=== PATIENT | female | born 1990 | race African-American/Black ===

== ENCOUNTER 2021-06-12 16:45 | Emergency (ER) | payer MEDICAID, OTHER ==
[~2021-06-12] VITALS: Ht 177.8 cm; Wt 100.0 kg
[2021-06-12 17:06] VITALS: BP 118/67
== END 2021-06-12 17:46 | disposition home or self-care (01) ==
LOC: ER 16:45
DX: N93.9 Abnormal uterine and vaginal bleeding, unspecified (principal)
CPT/HCPCS: 99281

== ENCOUNTER 2021-07-15 12:15 | Inpatient (IN) | payer MEDICAID ==
[~2021-07-15] VITALS: Ht 177.8 cm; Wt 98.9 kg
[2021-07-15] MEDS ORDERED: SODIUM CHLORIDE 0.9% 1,000 ML IV ONE (12:45)
[2021-07-15 13:28] LABS: BASOPHILS % 0.5 % (0.0-2.0); EOSINOPHILS % 2.4 % (0.0-5.0); HEMATOCRIT. 37.5 % (36.0-48.0); HEMOGLOBIN. 12.9 g/dL (12.0-16.0); LYMPHOCYTES % 26.6 % (20.0-50.0); MEAN CORPUSCULAR HEMOGLOBIN 30.5 pg (28.0-32.0); MEAN CORPUSCULAR VOLUME 88.8 fL (81.0-99.0); MONOCYTES % 13.6 % (2.0-8.0); NEUTROPHILS % 56.9 % (40.0-76.0); PLATELET 251 x1000/uL (130-400); RED BLOOD CELL COUNT 4.22 mill/uL (4.2-5.4)
[2021-07-15] MEDS: ONDANSETRON HCL 4MG/2ML INJ IV NR ×2 (13:30→19:41)
[2021-07-15 13:41] LABS: CHLORIDE 100 mEq/L (98-107)
[2021-07-15 14:08] LABS: B-HCG QUANTITATIVE 115394 mIU/mL (<3)
[2021-07-15 16:09] LABS: ETHANOL BLOOD < 10 mg/dL
[2021-07-15 16:26] LABS: *AMPHETAMINES SCREEN URINE NEGATIVE (NEGATIVE); *BARBITURATES SCREEN URINE NEGATIVE (NEGATIVE); *BENZODIAZEPINES SCREEN URINE NEGATIVE (NEGATIVE); *COCAINE SCREEN URINE NEGATIVE (NEGATIVE); METHADONE URINE SCREEN NEGATIVE (NEGATIVE); OPIATES URINE SCREEN NEGATIVE (NEGATIVE); PHENCYCLIDINE URINE SCREEN NEGATIVE (NEGATIVE)
[2021-07-15 16:36] LABS: CANNABINOID URINE SCREEN PRESUMTIVE POSITIVE (NEGATIVE)
[2021-07-15] MEDS ORDERED: POTASSIUM CHLORIDE 20MEQ/PACKET PO ONE (18:30)
[2021-07-15] MEDS ORDERED: POTASSIUM CHLORIDE 20MEQ/PACKET PO NR (23:35)
[2021-07-16] VITALS: BP 128/86
[2021-07-16] MEDS ORDERED: DEXTROSE 50% WATER 50ML SYRINGE IV PRN ×2 (01:00→12:30)
[2021-07-16] MEDS ORDERED: BLOOD SUGAR DIAGNOSTIC STRIP TEST SCH (07:40)
[2021-07-16 08:00] VITALS: BP 106/68
[2021-07-16] MEDS ORDERED: INSULIN LISPRO 100 UNITS/ML SUBCUT SCH (08:10)
[2021-07-16 09:14] LABS: BASOPHILS % 0.6 % (0.0-2.0); EOSINOPHILS % 2.3 % (0.0-5.0); HEMATOCRIT. 34.1 % (36.0-48.0); HEMOGLOBIN. 11.6 g/dL (12.0-16.0); LYMPHOCYTES % 30.8 % (20.0-50.0); MEAN CORPUSCULAR HEMOGLOBIN 30.1 pg (28.0-32.0); MEAN CORPUSCULAR VOLUME 88.3 fL (81.0-99.0); MEAN PLATELET VOLUME 9.3 fl (7.4-10.4); MONOCYTES % 14.3 % (2.0-8.0); PLATELET 215 x1000/uL (130-400); RED BLOOD CELL COUNT 3.86 mill/uL (4.2-5.4); RED CELL DISTRIBUTION WIDTH 12.9 % (11.6-14.6)
[2021-07-16 09:33] LABS: CHLORIDE 104 mEq/L (98-107)
[2021-07-16 12:21] VITALS: BP 116/72
[2021-07-16] MEDS: ONDANSETRON HCL 4MG/2ML INJ IV PRN ×2 (12:52→19:52)
[2021-07-16] MEDS: DEXT 5%/0.45% NACL 1000ML 1,000 ML IV SCH (12:53)
[2021-07-16 16:29] VITALS: BP 107/68
[2021-07-16] MEDS: METOCLOPRAMIDE HCL 10MG/2ML VIAL IV SCH (17:11)
[2021-07-16 20:00] VITALS: BP 115/67
[2021-07-17] VITALS: BP 108/69
[2021-07-17] MEDS: DEXT 5%/0.45% NACL 1000ML 1,000 ML IV SCH ×2 (01:50→17:23)
[2021-07-17 04:00] VITALS: BP 110/67
[2021-07-17] MEDS: METOCLOPRAMIDE HCL 10MG/2ML VIAL IV SCH ×5 (05:39→23:07)
[2021-07-17 07:47] VITALS: BP 98/53
[2021-07-17] MEDS: MULTIVITAMINS,THER W-MINERALS TABLET PO SCH (08:32)
[2021-07-17] MEDS: FOLIC ACID 1MG TABLET PO SCH (08:32)
[2021-07-17 08:44] LABS: CHLORIDE 106 mEq/L (98-107)
[2021-07-17 09:04] LABS: PHOSPHORUS 3.6 mg/dL (2.5-4.9)
[2021-07-17] MEDS ORDERED: POTASSIUM CHLORIDE INJ 40 MEQ in DEXT 5% WATER 250 ML IV ONE (09:45)
[2021-07-17 10:36] LABS: BASOPHILS % 0.5 % (0.0-2.0); LYMPHOCYTES % 28.1 % (20.0-50.0); MEAN CORPUSCULAR HEMOGLOBIN 29.8 pg (28.0-32.0); MEAN CORPUSCULAR VOLUME 87.1 fL (81.0-99.0); MEAN PLATELET VOLUME 9.2 fl (7.4-10.4); MONOCYTES % 14.1 % (2.0-8.0); NEUTROPHILS % 54.3 % (40.0-76.0); PLATELET 208 x1000/uL (130-400); RED BLOOD CELL COUNT 3.68 mill/uL (4.2-5.4)
[2021-07-17] MEDS ORDERED: KCL 20MEQ/100ML X 2 FOR TOTAL KCL 40MEQ/200ML IV SCH (11:00)
[2021-07-17 11:44] VITALS: BP 123/69
[2021-07-17] MEDS ORDERED: POTASSIUM CHLORIDE 20MEQ/PACKET PO NR (13:00)
[2021-07-17 15:33] VITALS: BP 100/59
[2021-07-17] MEDS: DEXT 5%/0.45% NACL KCL 20MEQ/L 1,000 ML IV SCH (19:30)
[2021-07-17 20:00] VITALS: BP 100/52
[2021-07-18] VITALS: BP 114/64
[2021-07-18 04:00] VITALS: BP 111/62
[2021-07-18] MEDS: METOCLOPRAMIDE HCL 10MG/2ML VIAL IV SCH ×2 (05:25→12:10)
[2021-07-18 07:38] LABS: BASOPHILS % 0.7 % (0.0-2.0); EOSINOPHILS % 2.4 % (0.0-5.0); HEMATOCRIT. 32.4 % (36.0-48.0); HEMOGLOBIN. 11.1 g/dL (12.0-16.0); LYMPHOCYTES % 28.4 % (20.0-50.0); MEAN CORPUSCULAR HEMOGLOBIN 30.2 pg (28.0-32.0); MEAN CORPUSCULAR VOLUME 87.9 fL (81.0-99.0); MEAN PLATELET VOLUME 9.3 fl (7.4-10.4); MONOCYTES % 14.7 % (2.0-8.0); NEUTROPHILS % 53.8 % (40.0-76.0); PLATELET 204 x1000/uL (130-400); RED BLOOD CELL COUNT 3.69 mill/uL (4.2-5.4)
[2021-07-18 08:00] VITALS: BP 99/47
[2021-07-18] MEDS: MULTIVITAMINS,THER W-MINERALS TABLET PO SCH (08:06)
[2021-07-18] MEDS: FOLIC ACID 1MG TABLET PO SCH (08:06)
[2021-07-18 08:15] LABS: CHLORIDE 107 mEq/L (98-107)
[2021-07-18] MEDS: DEXT 5%/0.45% NACL KCL 20MEQ/L 1,000 ML IV SCH (08:38)
[2021-07-18] MEDS ORDERED: POTA-79 MT (11:49)
[2021-07-18] MEDS ORDERED: METO5TAB86 MT (11:49)
[2021-07-18] MEDS ORDERED: FOLI-43 PO (11:49)
[2021-07-18] MEDS ORDERED: ONDA4TAB5 MT (11:49)
[2021-07-18 12:00] VITALS: BP 121/78
[2021-07-18 13:09] VITALS: BP 121/78
== END 2021-07-18 14:37 | disposition home or self-care (01) | DRG 566 ==
LOC: ER 12:25 → 7WST 20:19 → EDBEDREQ 20:23 → EDBEDREQTM 20:23 → ENRESERV 22:53
PROVIDERS: ADMIT Internal Medicine; ATTEND Internal Medicine
DX: O21.9 Vomiting of pregnancy, unspecified (principal); E16.2 Hypoglycemia, unspecified; O99.281 Endocrine, nutritional and metabolic diseases complicating pregnancy, first trimester; R74.01 Elevation of levels of liver transaminase levels; E87.6 Hypokalemia; Z3A.09 9 weeks gestation of pregnancy
CPT/HCPCS: 36415; 76801; 80048; 80053; 80076; 80305; 80307; 80320; 80329; 82962; 83036; 83735; 83880; 84100; 84439; 84484; 84702; 85025; 93005; 93970; 99285; J2405; J2765; J3480; J7030; G0480